=== PATIENT | male | born 1995 | race Caucasian/White ===

== ENCOUNTER 2022-11-07 07:05 | Emergency (ER) | payer OTHER ==
[~2022-11-07] VITALS: Ht 188 cm; Wt 77.6 kg
[2022-11-07] MEDS ORDERED: KETO10TA2 PO (12:23)
[2022-11-07] MEDS ORDERED: NORFLEX100MG PO (12:23)
== END 2022-11-07 12:34 | disposition home or self-care (01) ==
LOC: ER 07:05
DX: M25.572 Pain in left ankle and joints of left foot (principal)